=== PATIENT | male | born 1985 | race African-American/Black ===

== ENCOUNTER 2023-08-14 13:29 | Emergency (ER) | payer BC, MEDICAID, SELFPAY ==
[2023-08-14] VITALS (10 sets, daily range): BP systolic 139–150; BP diastolic 77–98; PULSE 86–104; RESP 15–21; TEMP 36.5–36.7; O2SAT 98–100
--- NOTE | ~2023-08-14 | XR_ITS ---
XR chest 1V portable DATE: 08/14/2023 14:25 INDICATION: Cough, congestion and chills for one day TECHNIQUE: Portable upright AP chest on 08/14/2023 1420 hours COMPARISON: None FINDINGS: Normal heart size. No hilar or mediastinal enlargement. No pulmonary infiltrate or consolid ation, pleural effusion or pulmonary vascular congestion or pneumothorax is detected. IMPRESSION: Negative Reviewed, dictated and finalized at location A. STACKER IMPRESSION: Negative
--- NOTE | 2023-08-14 13:35 | ED.URI ---
HPI - URI/Sore Throat General Chief Complaint: Upper Respiratory Infection Stated Complaint: Cold, fever Time Seen by Provider: 08/14/23 13:35 Source: patient and family (mother) Mode of arrival: ambulatory Limitations: no limitations History of Present Illness HPI Narrative: patient is a pleasant 37 year male who presents to the ED today for evaluation of URI symptoms starting a few days ago. he has had a sore throat, congestion, cough. also has pain to the left upper rib. states it hurts to take a deep breath in his chest. denies SOB. denies fever, chills, nausea, vomiting. denies any known exposure to illness. denies dizziness. MD elicited complaint: fever Related Data Allergies Allergy/AdvReac Type Severity Reaction Status Date / Time shellfish derived Allergy Anaphylaxis Verified 08/14/23 13:52 Review of Systems Review of Systems: CONSTITUTIONAL: Denies fever, chills, or sweats. EYES: Denies visual changes, redness, or discharge. ENT: +rhinorrhea, congestion, sore throat. CARDIOVASCULAR: Denies chest pain, palpitations, or edema. RESPIRATORY: cough, pain with deep breathing. GASTROINTESTINAL: Denies abdominal pain, nausea, vomiting, or diarrhea. GENITOURINARY: Denies dysuria or hematuria. SKIN: Denies rash or itching. MUSCULOSKELETAL: left rib pain. Denies back pain, joint pain, or myalgia. NEUROLOGIC: tingling to left little and ring finger intermittently. denies weakness/headache PSYCHIATRIC: Denies anxiety or depression. All systems reviewed & are unremarkable except as noted in HPI and below Exam Narrative: GENERAL: Well-appearing, obese, well-nourished, and in no acute distress. HEAD: Normocephalic, atraumatic. EYES: PERRLA and EOMI. ENT:congestion noted. normal TM bilaterally. posterior oropharyngeal erythema/swelling. no tonsillar exudate or swelling. no peritonsillar abscess. swallowing with ease. NECK: Supple. CHEST: Clear to auscultation. No respiratory distress. TTP to left lateral/anterior/upper rib. no crepitus/deformity noted. HEART: Regular rate and rhythm. No murmur heard. Normal peripheral pulses. ABDOMEN: Soft, nontender, nondistended, normal active bowel sounds. EXTREMITIES: Normal range of motion. No edema.full ROM to LUE with no pain. SKIN: Warm, dry, no rash. NEURO: No focal deficits. Alert and oriented x3. CN II-XII grossly intact. distal NV intact to bilateral upper and lower extremities. strength and sensation equal. PSYCH: Normal mood and affect. Course Vital Signs Vital signs: Vital Signs Temperature 97.7 F 08/14/23 13:34 Pulse Rate 104 H 08/14/23 13:34 Respiratory Rate 18 08/14/23 13:34 Blood Pressure 148/77 H 08/14/23 13:34 Pulse Oximetry 100 08/14/23 13:34 Oxygen Delivery Room Air 08/14/23 13:34 Temperature 98.0 F 08/14/23 16:20 Pulse Rate 93 08/14/23 16:20 Respiratory Rate 16 08/14/23 16:20 Blood Pressure 143/93 H 08/14/23 16:20 Pulse Oximetry 98 08/14/23 16:20 Oxygen Delivery Room Air 08/14/23 13:49 MDM - URI/Sore Throat MDM Narrative Medical decision making narrative: Patient presents for viral URI symptoms.? Rapid strep negative.?covid/flu negative. Discussed supportive care measures for symptoms.? Discussed discharge medications. negative CXR. ? Patient is nontoxic in appearance.? Patient in no acute distress.?BP elevated. Patient is asymptomatic specifically no chest pain, shortness of breath, headache or vision changes.? All other vital signs are within normal limits. No indication for emergent workup at this time. Discussed risk of untreated blood pressure which includes heart attack, stroke, organ damage, permanent disability and possibly .? Advised need for very close follow-up with PCP for close reevaluation.? Patient expresses verbal understanding of this. Vitals within normal limits.? Discussed return precautions with the patient including all the red flag signs or symptoms of when to return the patient. The pat
[2023-08-14 14:10] LABS: Strep Group A RT-PCR NOT DETECTED (Negative)
[2023-08-14 14:21] LABS: Influenza A QL RT-PCR Negative (Negative); Influenza B QL RT-PCR Negative (Negative); SARS-CoV-2 RNA PCR Negative (Negative)
[2023-08-14] MEDS: LIDOCAINE HCL 2% VISC SOLN 15 ML UDC PO (14:54)
[2023-08-14] MEDS: KETOROLAC 30 MG/ML VIAL (*BKC) IM (14:55)
[2023-08-14] MEDS: LIDOCAINE 5% PATCH 1 PATCH TRANSDERM (14:56)
== END 2023-08-14 16:21 | disposition home or self-care (01) ==
PROVIDERS: Emergency Medicine; Emergency Provider Nurse Practitioner; PCP Family Medicine
DX: J06.9 Acute upper respiratory infection, unspecified (principal); J02.9 Acute pharyngitis, unspecified; R07.81 Pleurodynia; R03.0 Elevated blood-pressure reading, without diagnosis of hypertension; Z20.822 Contact with and (suspected) exposure to COVID-19
CPT/HCPCS: 71045; 87636; 87651; 96372; 99283; A9270; J1885

== ENCOUNTER 2023-09-18 17:16 | Inpatient (IN) | payer BC, MEDICAID, SELFPAY ==
--- NOTE | ~2023-09-18 | XR_ITS ---
EXAMINATION: XR chest 1V portable DATE: 09/19/2023 01:31 INDICATION: Cough and shortness of breath. TECHNIQUE: A single frontal view of the chest was obtained. COMPARISON: Chest single view 08/14/2023, chest CT 09/19/2023 FINDINGS: There are patchy airspace opacities in all lung zones bilaterally, worst in left perihilar region. No pleural effusion or pneumothorax. The heart size is normal. IMPRESSION: 1. Diffuse lung disease, consistent with pneumonia versus pulmonary edema. Reviewed, dictated and finalized at location A. ED BOX SEWER
--- NOTE | ~2023-09-18 | CT_ITS ---
EXAMINATION: CTA chest PE protocol DATE: 09/19/2023 01:22 INDICATION: Chest pain. Shortness of breath. TECHNIQUE: Computed tomography angiography (CTA) of the chest was performed with 100 mL Omnipaque-350 intravenous contrast timed to evaluate the pulmonary arteries. Coronal maximum intensity projection 3D-reconstructions were created by the technologist. Automated exposure control and iterative reconst ruction technique were employed. The dose-length product was 1080.41 mGy-cm. COMPARISON: None. FINDINGS: There are patchy airspace and groundglass opacities in all lobes. There is peripheral septa l thickening in right lower lobe. There are small pleural effusions. The heart size is normal. No per icardial effusion. There is no pulmonary embolus. There is diffuse hepatic steatosis. There is a 3.9 cm peripherally calcified mass in the spleen, likely an old hematoma or old infection. Gynecomastia i s noted. There is moderate thoracic spondylosis. There is mild chronic anterior wedging of multiple v ertebral bodies. IMPRESSION: 1. No pulmonary embolus. 2. Diffuse lung disease, consistent with pneumonia versus pulmonary edema. 3. Small pleural effusions. Reviewed, dictated and finalized at location A. STONECUTTER
--- NOTE | ~2023-09-18 | XR_ITS ---
EXAMINATION: XR chest 1V portable Exam Date/Time: 09/20/2023 15:55 CLOUD SECURITY ARCHITECT HISTORY: sob AND PERSISTANT COUGH PT DENIES FEVER Comparison: 09/19/2023. RESULT: Lines, tubes, and devices: None. Lungs and pleura: Patchy diffuse airspace disease, slightly increasing in the bilateral lower lungs. Cardiomediastinal silhouette: Stable. Other: No acute osseous or upper abdominal finding. IMPRESSION: Diffuse pneumonia versus edema, slightly worsening in the bilateral lower lungs. Reviewed, dictated and finalized at location K. D SECURITY ARCHITECT IMPRESSION: Diffuse pneumonia versus edema, slightly worsening in the bilateral lower lungs .
[2023-09-18 17:48] VITALS: BP 147/88; PULSE 120; RESP 20; TEMP 36.3; O2SAT 100
[2023-09-18 20:49] VITALS: BP 132/82; PULSE 109; TEMP 36.8; O2SAT 100
[2023-09-18 22:46] VITALS: PULSE 106; RESP 19; O2SAT 97
[2023-09-18 22:56] VITALS: BP 131/93; PULSE 107; RESP 17; O2SAT 98
[2023-09-18 22:58] VITALS: PULSE 104
--- NOTE | 2023-09-18 23:12 | ECG_ITS ---
Measurements Intervals [place] Rate: 106 P: 64 WA: 140 QRS: 24 QRSD: 101 T: 54 QT: 339 QTc: 452 Interpretive Statements SINUS TACHYCARDIA POSSIBLE LEFT ATRIAL ENLARGEMENT [-0.1mV P WAVE IN V1/V2] NONSPECIFIC T-WAVE ABNORMALITY ABNORMAL RHYTHM ECG NO PREVIOUS ECG AVAILABLE FOR COMPARISON Electronically Signed On 09-19-2023 16:32:46 AUTOMATIC MOLD SANDER by Sha Das M.D.
[2023-09-18 23:41] LABS: Basophils Absolute Auto 0.1 K/mm3 (0.0-0.1); Basophils Percent Auto 0.4 % (0.2-1.2); Eosinophils Absolute Auto 0.1 K/mm3 (0-0.3); Eosinophils Percent Auto 0.5 % (0-4.4); Hematocrit 44.8 % (42.0-52.0); Hemoglobin 14.6 g/dL (14.0-18.0); Immature Granulocyte Absolute 0.05 K/mm3 (0.00-0.031); Immature Granulocyte Percent A 0.3 % (0-0.5); Lymphocytes Absolute Auto 2.84 K/mm3 (0.9-3.2); Lymphocytes Percent Auto 19.8 % (18.3-44.2); Mean Corpuscular HGB Conc 32.6 g/dl (32-36); Mean Corpuscular Hemoglobin 28.2 pg (26-34); Mean Corpuscular Volume 86.5 fl (80-100); Monocytes Absolute Auto 1.3 K/mm3 (0.1-0.6); Monocytes Percent Auto 9.1 % (2.6-8.5); Neutrophils Percent Auto 69.9 % (45.5-73.1); Platelet Count Result 247 k/mm3 (150-375); Red Blood Count 5.18 M/mm3 (4.6-6.20); Red Cell Distribution Width 13.1 % (11.5-14.5); White Blood Count 14.3 K/mm3 (4.5-10.0)
[2023-09-18 23:43] VITALS: BP 152/91; PULSE 106; O2SAT 95
[2023-09-18 23:47] LABS: Appearance Urine Clear (Clear); Bilirubin Urine Negative (Negative); Blood Urine Negative (Negative); Color Urine Yellow (Yellow); Glucose Urine UA 1+ mg/dL (Negative); Ketones Urine Negative (Negative); Leukocyte Esterase Ur Negative LEU/UL (Negative); Nitrate Urine Negative (Negative); Protein Urine Negative (Negative); Specific Grav Ur 1.016 (1.001-1.035); pH Urine 5.5 (5.0-9.0)
[2023-09-18 23:51] LABS: Add Urine Microscopic? NO
[2023-09-18 23:52] LABS: Prothrombin Time 13.4 Seconds (11.1-14.7)
[2023-09-18 23:56] LABS: Alanine Aminotransferase 21 U/L (6-50); Albumin Level 3.7 g/dL (3.5-5.1); Alkaline Phosphatase 83 U/L (38-126); Anion Gap 6 mmol/L (8-16); Aspartate Amino Transferase 19 U/L (17-59); Bilirubin,Total 1.1 mg/dL (0.2-1.3); Blood Urea Nitrogen 5 mg/dL (9-20); Calcium 8.5 mg/dL (8.4-10.2); Carbon Dioxide 26 mmol/L (22-30); Chloride 104 mmol/L (98-107); Estimated CRCL calculation 168 ml/min; Estimated Glomerular Filt Rate > 60; Glucose 243 mg/dL (65-110); Lactic Acid Reflex 1.4 mmol/L (0.7-2.0); Magnesium 1.8 mg/dL (1.6-2.3); Potassium 3.9 mmol/L (3.4-5.0); Sodium 136 mmol/L (137-145)
[2023-09-19] VITALS (15 sets, daily range): BP systolic 124–162; BP diastolic 77–101; PULSE 95–110; RESP 16–21; TEMP 36.5–37.4; O2SAT 92–97; BMI 37.6
[2023-09-19] LABS: D Dimer 0.57 ug/mL (<0.48)
[2023-09-19 00:07] LABS: NT Pro B Type Natriuretic Pept 774 pg/mL (19.9-100); Troponin I < 0.012 ng/mL (0.000-0.034)
[2023-09-19 00:13] LABS: Procalcitonin 0.1 ng/mL
[2023-09-19 00:25] LABS: Influenza A QL RT-PCR Negative (Negative); Influenza B QL RT-PCR Negative (Negative); RSV RNA, RT-PCR Negative (Negative); SARS-CoV-2 RNA PCR Negative (Negative)
--- NOTE | 2023-09-19 04:58 | ED.GENADULT ---
HPI - General Adult General Chief complaint: Shortness of Breath/Dyspnea Stated complaint: SOB Time Seen by Provider: 09/18/23 22:49 History of Present Illness HPI narrative: Patient 38-year-old gentleman who presents emergency department with chief complaint of cough and shortness of breath. The patient reports that he has had a productive cough for some time reports been getting worse reports also been having shortness of breath worse whenever he lays flat. The patient reports that he has family history for hypertrophic cardiomyopathy and has not been evaluated before for it. The patient does report that he has had chills and body aches Related Data Allergies Allergy/AdvReac Type Severity Reaction Status Date / Time shellfish derived Allergy Anaphylaxis Verified 09/18/23 22:58 Review of Systems Review of Systems: A 10 system review of systems was completed on the patient and is negative except for what is stated in the HPI. Nursing and ancillary documentation was reviewed. Exam Narrative: GENERAL: Well-appearing, well-nourished, and in no acute distress. HEAD: Normocephalic, atraumatic. EYES: PERRLA and EOMI. ENT: Nares clear, no rhinorrhea or epistaxis. Mucous membranes moist. NECK: Supple. CHEST: Clear to auscultation. No respiratory distress. HEART: Regular rate and rhythm. No murmur heard. Normal peripheral pulses. ABDOMEN: Soft, nontender, nondistended, normal active bowel sounds. EXTREMITIES: Normal range of motion. No edema. SKIN: Warm, dry, no rash. NEURO: No focal deficits. Alert and oriented x3. PSYCH: Normal mood and affect. Course Vital Signs Vital signs: Vital Signs Temperature 36.3 C L 09/18/23 17:48 Pulse Rate 120 H 09/18/23 17:48 Respiratory Rate 20 09/18/23 17:48 Blood Pressure 147/88 H 09/18/23 17:48 Pulse Oximetry 100 09/18/23 17:48 Oxygen Delivery Room Air 09/18/23 17:48 Temperature 36.8 C 09/18/23 20:49 Pulse Rate 108 H 09/19/23 04:00 Respiratory Rate 20 09/19/23 04:00 Blood Pressure 162/100 H 09/19/23 04:00 Pulse Oximetry 95 09/19/23 04:00 Oxygen Delivery Room Air 09/18/23 22:56 Medical Decision Making MDM Narrative Medical decision making narrative: Differential diagnosis includes pneumonia, COVID, congestive heart failure, pulmonary embolism Patient had a normal troponin but elevated D-dimer and elevated BNP. Chest x-ray did show some patchy infiltrates COVID and flu RSV were negative. [place] [id number] CTA of the chest showed per radiology report pulmonary edema and trace bilateral pleural effusions. The patient has had symptoms consistent with pneumonia and the CT does show infiltrates the patient was empirically started with Rocephin and Zithromax and also was given 20 mg of IV Lasix. Given the patient's history of hypertrophic cardiomyopathy and family the patient will undergo a cardiac echo while in the hospital. Vital Signs Vital Signs: Vital Signs Temperature 36.3 C L 09/18/23 17:48 Pulse Rate 120 H 09/18/23 17:48 Respiratory Rate 20 09/18/23 17:48 Blood Pressure 147/88 H 09/18/23 17:48 Pulse Oximetry 100 09/18/23 17:48 Oxygen Delivery Room Air 09/18/23 17:48 Temperature 36.8 C 09/18/23 20:49 Pulse Rate 108 H 09/19/23 04:00 Respiratory Rate 20 09/19/23 04:00 Blood Pressure 162/100 H 09/19/23 04:00 Pulse Oximetry 95 09/19/23 04:00 Oxygen Delivery Room Air 09/18/23 22:56 Lab Data 09/18/23 23:30 09/18/23 23:30 Labs: Lab Results 09/18/23 Range/Units 23:30 WBC 14.3 H (4.5-10.0) K/mm3 RBC 5.18 (4.6-6.20) M/mm3 Hgb 14.6 (14.0-18.0) g/dL Hct 44.8 (42.0-52.0) % MCV 86.5 (80-100) fl MCH 28.2 (26-34) pg MCHC 32.6 (32-36) g/dl RDW 13.1 (11.5-14.5) % Plt Count 247 (150-375) k/mm3 MPV 12.0 H (7.4-10.4) fl Immature Gran % (Auto) 0.3 (0-0.5) % Neut % (Auto) 69.9 (45.5-73.1) % Lymph % (Auto)
[2023-09-19] MEDS: BENZONATATE 100 MG CAPSULE 200 MG PO (05:33)
[2023-09-19] MEDS: FUROSEMIDE INJ 40 MG/4 ML VIAL 20 MG IV PUSH (05:33)
[2023-09-19] MEDS: AZITHROMYCIN 500 MG/NS 250 ML 500 MG/250 ML BAG 250 MG IVPB (06:00)
--- NOTE | 2023-09-19 06:15 | PM.IMHP ---
H&P: HPI History of Present Illness Date/Time: 09/19/23 06:15 Chief Complaint: shortness of breath, cough, sputum production Narrative: A pleasant 38M w/ obesity who presents with orthopnea, dyspnea on exertion, cough productive of yellow green and brown sputum since . He does not know of any sick contacts and hasn't travelled. He denies swelling. His father had HCM but he hasn't been tested for it yet. He denies syncope. Associated symptoms include nausea and soreness at the ribs. He denies smoking, ETOH or illicit drug use. Review of Systems Review of Systems: All systems reviewed & are unremarkable except as noted in HPI and below (HPI) Meds Home Medications and Allergies Home Medications Medication Instructions Recorded Confirmed Type benzonatate 200 mg capsule 200 mg PO TID PRN cough #30 caps 08/14/23 Rx diclofenac sodium 50 mg 50 mg PO TID PRN pain #30 tabs 08/14/23 Rx tablet,delayed release lidocaine HCl 2 % mucosal solution 1 applic PO QID PRN pain #100 mL 08/14/23 Rx (Lidocaine Viscous) Allergies Allergy/AdvReac Type Severity Reaction Status Date / Time shellfish derived Allergy Anaphylaxis Verified 09/18/23 22:58 Vital Signs Vital Signs - 24 hr 09/18/23 17:48 09/18/23 20:49 09/18/23 22:46 Temperature 97.3 F L 98.3 F Pulse Rate 120 H 109 H 106 H Respiratory Rate 20 19 Blood Pressure 147/88 H 132/82 Pulse Oximetry 100 100 97 Oxygen Delivery Room Air Room Air 09/18/23 22:56 09/18/23 22:56 09/18/23 22:58 Temperature Pulse Rate 107 H 104 H Respiratory Rate 17 Blood Pressure 131/93 H Pulse Oximetry 98 98 Oxygen Delivery Room Air 09/18/23 23:43 09/19/23 02:10 09/19/23 04:00 Temperature Pulse Rate 106 H 107 H 108 H Respiratory Rate 19 20 Blood Pressure 152/91 H 152/101 H 162/100 H Pulse Oximetry 95 96 95 Oxygen Delivery Exam Const: General: comfortable and no acute distress Eyes: Pupils: Equal, round and reactive pupils present Neck: Neck: supple Resp: Effort & Inspection: normal respiratory effort Auscultation: clear to auscultation bilaterally, no crackles, no rales and no rhonchi Cardio: Rate: regular rate Rhythm: regular rhythm Heart sounds: no gallops, no murmurs and no rubs GI: GI Palp: Yes Soft to palpation and No Tenderness to palpation present (GI) Neuro: Motor exam (neuro): 5/5 motor strength present throughout Extrem: General: no edema H&P: Results Labs Labs: Short CBC 09/18/23 Range/Units 23:30 WBC 14.3 H (4.5-10.0) K/mm3 Hgb 14.6 (14.0-18.0) g/dL Hct 44.8 (42.0-52.0) % Plt Count 247 (150-375) k/mm3 BMP 09/18/23 23:30 Sodium 136 L Potassium 3.9 Chloride 104 Carbon Dioxide 26 BUN 5 L Creatinine 0.70 Glucose 243 H Calcium 8.5 Cardiac Enzymes 09/18/23 Range/Units 23:30 Troponin I < 0.012 (0.000-0.034) ng/mL Liver Function 09/18/23 Range/Units 23:30 Total Bilirubin 1.1 (0.2-1.3) mg/dL AST 19 (17-59) U/L ALT 21 (6-50) U/L Alkaline Phosphatase 83 (38-126) U/L Albumin 3.7 (3.5-5.1) g/dL Urine 09/18/23 Range/Units 23:30 Urine Color Yellow (Yellow) Urine Appearance Clear (Clear) Urine pH 5.5 (5.0-9.0) Ur Specific [place] 1.016 (1.001-1.035) Urine Protein Negative (Negative) mg/dL Urine Glucose (UA) 1+ H (Negative) mg/dL Assessment and Plan Assessment and plan (1) Community acquired pneumonia: Code(s): J18.9 - Pneumonia, unspecified organism Status: Acute Plan A pleasant 38M w/ obesity who presents with orthopnea, dyspnea on exertion, cough productive of yellow green and brown sputum since thanks. He does not know of any sick contacts and hasn't travelled. He denies swelling. His father had HCM but he hasn't been tested for it yet. He denies syncope. Associated symptoms include nausea and soreness at the ribs. He denies smoking, ETOH or illicit drug use. Admitted on 09/19
--- NOTE | 2023-09-19 07:50 | ADMGEN ---
This patient, Chandler Tidwell, was admitted to Medical Room 344-01. Patient/family oriented to hospital policies and general routines including ID bracelet, bed and alarms, visiting hours, pain management, procedures, bathroom and other care routines, personal items, smoking policy, room service/diet, and visiting hours. Information on how to activate the Rapid Response Team has been discussed. Patient/Family are encouraged to report perceived risks to care and to ask questions if they do not understand what they are told or what they should do.
[2023-09-19] MEDS: IPRATROPIUM BR 0.02% INH SOLN 0.5 MG/2.5 ML VIAL INHALATION ×3 (08:44→20:58)
[2023-09-19] MEDS: ALBUTEROL SULFATE NEB 2.5 MG/3 ML INH INHALATION ×3 (08:44→20:58)
[2023-09-19] MEDS: ENOXAPARIN 40 MG/0.4 ML SYRINGE SUB-Q (11:42)
--- NOTE | 2023-09-19 15:04 | PM.IMPN ---
Progress Note: A&P Assessment and Plan (1) Community acquired pneumonia: Code(s): J18.9 - Pneumonia, unspecified organism Status: Acute Assessment and Plan: Initiated on Rocephin and azithromycin 09/19 Sputum culture pending Recheck chest x-ray 09/20 Patient will need liquid antibiotics at discharge due to inability to swallow pills (2) Shortness of breath: Code(s): R06.02 - Shortness of breath Status: Acute Assessment and Plan: CTA chest official read pending, prelim read w/o acute PE. it also demonstrates hazy infiltrates b/l and some pulm edema. although his orthopnea and HERNANDEZ are most likely related to CAP, his father had HCM, his BNP elevated to 774. trop normal and EKG w/o acute ischemic change, TTE pending. He appears euvolemic and was given lasix 20mg x1 in the ED. will hold further dosing for now Plan GI prophylaxis: not indicated DVT prophylaxis: lovenox Code Status: Full Code Dispo: stable. Subjective Date/time seen: 09/19/23 15:04 Interval history: 38M w/ obesity who presents with orthopnea, dyspnea on exertion, cough productive of yellow green and brown sputum since and currently being treated for pneumonia. No overnight events noted. No nausea, vomiting or diarrhea. No fevers or chills. Patient is complaining of chest pain and shortness of breath, about the same as yesterday but better than 5 days ago when symptoms initiated. Family is in the room and states they have a family history of HOCM and they would like patient tested for this while he was here. Review of Systems Review of Systems: 12 point review of systems was assessed and was negative except as noted in the HPI Exam Narrative: General: No acute distress, alert and oriented per baseline HEENT: Atraumatic, normocephalic, mucous membranes moist CV: Regular rate and rhythm, S1, S2 Lungs: Quite diminished throughout, unable to hear crackles or wheezes, poor air entry Abdomen: Soft, nontender, nondistended Extremities: Normal to inspection Skin: No rashes noted, no lesions or wounds seen Psych: Euthymic, normal affect Objective Data Vital Signs Vital Signs: Vital Signs - 24 hr 09/18/23 17:48 09/18/23 20:49 09/18/23 22:46 Temperature 97.3 F L 98.3 F Pulse Rate 120 H 109 H 106 H Respiratory Rate 20 19 Blood Pressure 147/88 H 132/82 Pulse Oximetry 100 100 97 Oxygen Delivery Room Air Room Air 09/18/23 22:56 09/18/23 22:56 09/18/23 22:58 Temperature Pulse Rate 107 H 104 H Respiratory Rate 17 Blood Pressure 131/93 H Pulse Oximetry 98 98 Oxygen Delivery Room Air 09/18/23 23:43 09/19/23 02:10 09/19/23 04:00 Temperature Pulse Rate 106 H 107 H 108 H Respiratory Rate 19 20 Blood Pressure 152/91 H 152/101 H 162/100 H Pulse Oximetry 95 96 95 Oxygen Delivery 09/19/23 07:19 09/19/23 08:47 09/19/23 08:47 Temperature Pulse Rate 102 H 102 H Respiratory Rate 21 H 20 Blood Pressure 162/100 H Pulse Oximetry 96 92 Oxygen Delivery Room Air 09/19/23 08:54 09/19/23 10:00 09/19/23 11:30 Temperature 99.3 F Pulse Rate 96 103 H 108 H Respiratory Rate 20 20 Blood Pressure 133/92 H 124/78 Pulse Oximetry 96 97 Oxygen Delivery 09/19/23 12:00 09/19/23 14:25 09/19/23 14:39 Temperature Pulse Rate 110 H 100 104 H Respiratory Rate 20 20 Blood Pressure Pulse Oximetry Oxygen Delivery Intake/Output Intake/Output: Intake & Output 09/16/23 09/17/23 09/18/23 09/19/23 23:59 23:59 23:59 23:59 Intake Total 700 Balance 700 Meds/Results Medications: Active Medications Generic Name Dose Route Start Last Admin Trade Name Freq PRN Reason Stop Dose Admin Acetaminophen 650 mg 09/19/23 04:55 Acetaminophen 325 Mg Tablet PO Q4H PRN Mild Pain (1-3) or Fever Albuterol 2.5 mg 09/19/23 08:00 09/19/23 14:25 Albuterol Sulfate Neb 2.5 Mg/3 Ml Inh INHALATION 2.5 mg Q6
[2023-09-19] MEDS: LIDOCAINE 5% PATCH 1 PATCH TRANSDERM (16:26)
[2023-09-19] MEDS: KETOROLAC 15 MG/ML VIAL (*BKC) IV PUSH (16:27)
--- NOTE | 2023-09-19 20:32 | PC.NURSE ---
BOLIVAR DREW NOTIFIED OF PATIENT REQUEST FOR BREATHING TREATMENT.
[2023-09-19] MEDS: diphenhydrAMINE HCl CAP 25 MG CAPSULE PO (22:06)
[2023-09-19] MEDS: guaiFENesin/DEXTROMETHORPHAN 10 ML UDC 5 ML PO (22:06)
[2023-09-20] VITALS (18 sets, daily range): BP systolic 117–131; BP diastolic 69–79; PULSE 87–117; RESP 16–20; TEMP 36.6; O2SAT 94–97
[2023-09-20] MEDS: guaiFENesin/DEXTROMETHORPHAN 10 ML UDC 5 ML PO (02:09)
[2023-09-20] MEDS: KETOROLAC 15 MG/ML VIAL (*BKC) IV PUSH ×2 (02:11→22:09)
[2023-09-20] MEDS: IPRATROPIUM BR 0.02% INH SOLN 0.5 MG/2.5 ML VIAL INHALATION ×4 (03:30→20:09)
[2023-09-20] MEDS: ALBUTEROL SULFATE NEB 2.5 MG/3 ML INH INHALATION ×4 (03:30→20:09)
[2023-09-20 06:00] LABS: Basophils Absolute Auto 0.1 K/mm3 (0.0-0.1); Basophils Percent Auto 0.5 % (0.2-1.2); Eosinophils Absolute Auto 0.1 K/mm3 (0-0.3); Eosinophils Percent Auto 1.1 % (0-4.4); Hematocrit 42.8 % (42.0-52.0); Hemoglobin 13.6 g/dL (14.0-18.0); Immature Granulocyte Absolute 0.07 K/mm3 (0.00-0.031); Immature Granulocyte Percent A 0.5 % (0-0.5); Lymphocytes Absolute Auto 2.83 K/mm3 (0.9-3.2); Lymphocytes Percent Auto 21.8 % (18.3-44.2); Mean Corpuscular HGB Conc 31.8 g/dl (32-36); Mean Corpuscular Volume 88.1 fl (80-100); Monocytes Absolute Auto 1.4 K/mm3 (0.1-0.6); Monocytes Percent Auto 10.6 % (2.6-8.5); Neutrophils Absolute Auto 8.5 K/mm3 (1.3-6.7); Neutrophils Percent Auto 65.5 % (45.5-73.1); Platelet Count Result 235 k/mm3 (150-375); Red Blood Count 4.86 M/mm3 (4.6-6.20); Red Cell Distribution Width 12.8 % (11.5-14.5)
--- NOTE | 2023-09-20 06:00 | ECHO_ITS ---
Patient Info Name: Chandler Tidwell Age: 38 years : 1985 Gender: Male Ht: 71 in Wt: 270 lbs BSA: 2.52 m2 HR: 108 bpm BP: 123 / 69 mmHg Heart Rhythm: Sinus Rhythm, Tachycardia Technical Quality: Fair Exam Date: 09/20/2023 10:06 AM Exam Location: Echo Lab Patient Status: Inpatient Admit Date: 09/19/2023 Staff Ordering Physician: Mark Casper MD Banquet Steward: Beverly Ahn RDCS Attending Provider: Alexandrea Aparicio MD Referring Physician: Pennie MONZON; Exam Type: CA echo dop color flow w con Study Info Indications - pulm edema elevated BNP FAMILY HX/O HOCM Complete two-dimensional, color flow and Doppler transthoracic echocardiogram is performed with contrast to opacify the left ventricle and to improve the deliniation of the left ventricle endocardial borders. Contrast/Agitated Saline Contrast/Ag. Saline: Definity Amount: 2.00 ml Administered By: Beverly Ahn [facility] Existing IV Access: Yes IV Access Condition: patent with no signs of infiltration Summary 1. Left ventricular chamber dimension is mildly enlarged. 2. Left ventricular systolic function is severely reduced, estimated at 20-25%. 3. The left ventricular diastolic function is grade I diastolic dysfunction. 4. Right ventricular systolic function is normal. 5. There is mild to moderate mitral valve regurgitation. Left Ventricle Left ventricular chamber dimension is mildly enlarged. Left ventricular systolic function is severely reduced, estimated at 20-25%. There is no increased left ventricular wall thickness. The left ventricular diastolic function is grade I diastolic dysfunction. Right Ventricle Right ventricular chamber dimension is normal. Right ventricular systolic function is normal. Left Atria Left atrial chamber dimension is normal. Right Atria Right atrial chamber dimension is normal. Atrial Septum Intact interatrial septum visualized by color flow imaging. Aortic Valve The aortic valve is not well visualized. There is no aortic valve stenosis. There is no aortic valve regurgitation. Pulmonic Valve The pulmonic valve is not well visualized. Mitral Valve There is mild to moderate mitral valve regurgitation. Tricuspid Valve There is trace tricuspid valve regurgitation. Pericardium/Pleural There is no pericardial effusion. Inferior Vena Cava Inferior vena cava is not well visualized. Aorta The aortic root size at the sinus of Valsalva is normal. Left Ventricular Outflow Tract Name Value Normal LVOT 2D LVOT Diameter 2.15 cm LVOT Doppler LVOT Peak Gradient 3 mmHg LVOT Mean Gradient 2 mmHg LVOT VTI 16.44 cm LVOT VTI/AV VTI Ratio 0.79 LVOT Stroke Volume 59.62 ml LVOT CO 16.49 l/min LVOT CI 6.53 L/min/m2 Pulmonic Valve Name Value Normal JUSTINE D
[2023-09-20 06:12] LABS: Alanine Aminotransferase 18 U/L (6-50); Albumin Level 3.5 g/dL (3.5-5.1); Alkaline Phosphatase 82 U/L (38-126); Anion Gap 11 mmol/L (8-16); Aspartate Amino Transferase 19 U/L (17-59); Bilirubin,Total 1.3 mg/dL (0.2-1.3); Blood Urea Nitrogen 7 mg/dL (9-20); Calcium 8.4 mg/dL (8.4-10.2); Carbon Dioxide 22 mmol/L (22-30); Chloride 101 mmol/L (98-107); Estimated CRCL calculation 166 ml/min; Estimated Glomerular Filt Rate > 60; Glucose 364 mg/dL (65-110); Potassium 3.7 mmol/L (3.4-5.0); Sodium 134 mmol/L (137-145)
[2023-09-20] MEDS: AZITHROMYCIN 500 MG/NS 250 ML 500 MG/250 ML BAG 250 MG IVPB (07:04)
[2023-09-20] MEDS: ENOXAPARIN 40 MG/0.4 ML SYRINGE SUB-Q (08:16)
[2023-09-20] MEDS: PERFLUTREN LIPID MICROSPHERES 1.5 ML VIAL DILUTED TO 10 ML TOTAL VOLUME IV PUSH (10:40)
--- NOTE | 2023-09-20 11:03 | IVDEFINITY ---
Prior to administration of IV Definity the patient was educated on the risks and benefits of the imaging enhancing agent including potential adverse side effects. The patient verbalized understanding. Allergies were verified. No exclusion criteria were identified and at least one of the following inclusion criteria were met: 1) physician request, 2) patient technically difficult to image (per the [place] [employer] guidelines of two or more segments not discernable within the apical view), or 3) questionable left ventricular function. ?
--- NOTE | 2023-09-20 15:49 | PM.IMPN ---
Progress Note: A&P Assessment and Plan (1) Community acquired pneumonia: Code(s): J18.9 - Pneumonia, unspecified organism Status: Acute Assessment and Plan: Initiated on Rocephin and azithromycin 09/19 Sputum culture pending Recheck chest x-ray 09/20 pending Patient will need liquid antibiotics at discharge due to inability to swallow pills (2) Shortness of breath: Code(s): R06.02 - Shortness of breath Status: Acute Assessment and Plan: CTA chest official read pending, prelim read w/o acute PE. it also demonstrates hazy infiltrates b/l and some pulm edema. although his orthopnea and HERNANDEZ are most likely related to CAP, his father had HCM, his BNP elevated to 774. trop normal and EKG w/o acute ischemic change, TTE pending. He appears euvolemic and was given lasix 20mg x1 in the ED. will hold further dosing for now Improving, echo pending Plan GI prophylaxis: not indicated DVT prophylaxis: lovenox Code Status: Full Code Dispo: stable. Subjective Date/time seen: 09/20/23 15:49 Interval history: 38M w/ obesity who presents with orthopnea, dyspnea on exertion, cough productive of yellow green and brown sputum since and currently being treated for pneumonia. No overnight events noted. No nausea, vomiting or diarrhea. No fevers or chills. Patient is complaining of chest pain and shortness of breath, about the same as yesterday but better than 5 days ago when symptoms initiated. Family is in the room and states they have a family history of HOCM and they would like patient tested for this while he was here. 09/20: feels better than yesterday, no events, no fevers, no chills. Still with cough, SOB, chest discomfort with deep inspiration, but improving from yesterday. Review of Systems Review of Systems: 12 point review of systems was assessed and was negative except as noted in the HPI Exam Narrative: General: No acute distress, alert and oriented per baseline HEENT: Atraumatic, normocephalic, mucous membranes moist CV: Regular rate and rhythm, S1, S2 Lungs: Improved air entry from yesterday, coarse BS throughout, no wheeze Abdomen: Soft, nontender, nondistended Extremities: Normal to inspection Skin: No rashes noted, no lesions or wounds seen Psych: Euthymic, normal affect Objective Data Vital Signs Vital Signs: Vital Signs - 24 hr 09/19/23 20:58 09/19/23 20:00 09/19/23 20:00 Temperature Pulse Rate 95 105 H Respiratory Rate 20 Blood Pressure Pulse Oximetry Oxygen Delivery Room Air 09/19/23 21:52 09/20/23 00:00 09/20/23 03:30 Temperature 97.7 F Pulse Rate 100 111 H 103 H Respiratory Rate 18 20 Blood Pressure 128/77 Pulse Oximetry 97 Oxygen Delivery 09/19/23 21:06 09/20/23 03:42 09/20/23 04:00 Temperature Pulse Rate 100 105 H 105 H Respiratory Rate 20 20 Blood Pressure Pulse Oximetry Oxygen Delivery 09/20/23 05:51 09/20/23 07:00 09/20/23 07:00 Temperature 97.8 F Pulse Rate 103 H 94 94 Respiratory Rate 18 18 18 Blood Pressure 123/69 Pulse Oximetry 97 95 Oxygen Delivery Room Air 09/20/23 07:10 09/20/23 08:00 09/20/23 12:00 Temperature Pulse Rate 92 110 H 106 H Respiratory Rate 18 Blood Pressure Pulse Oximetry Oxygen Delivery 09/20/23 13:00 09/20/23 13:10 09/20/23 14:00 Temperature 97.9 F Pulse Rate 103 H 99 106 H Respiratory Rate 20 20 16 Blood Pressure 117/77 Pulse Oximetry 95 Oxygen Delivery Intake/Output Intake/Output: Intake & Output 09/17/23 09/18/23 09/19/23 09/20/23 23:59 23:59 23:59 23:59 Intake Total 1400 1330 Balance 1400 1330 Meds/Results Medications: Active Medications Generic Name Dose Route Start Last Admin Trade Name Freq PRN Reason Stop Dose Admin Acetaminophen 650 mg 09/19/23 04:55 Acetaminophen 325 Mg Tablet PO Q4H PRN Mild Pain (1-3) or Fever Albuterol 2.5 mg
[2023-09-20] MEDS: BENZONATATE 100 MG CAPSULE PO ×2 (16:14→19:34)
[2023-09-21] VITALS (12 sets, daily range): BP systolic 126–152; BP diastolic 69–87; PULSE 95–114; RESP 14–20; TEMP 36.4–37; O2SAT 93–100
[2023-09-21] MEDS: ALBUTEROL SULFATE NEB 2.5 MG/3 ML INH INHALATION (02:30)
[2023-09-21] MEDS: IPRATROPIUM BR 0.02% INH SOLN 0.5 MG/2.5 ML VIAL INHALATION (02:30)
[2023-09-21] MEDS: guaiFENesin/DEXTROMETHORPHAN 10 ML UDC 5 ML PO (03:53)
[2023-09-21 05:56] LABS: Basophils Absolute Auto 0.1 K/mm3 (0.0-0.1); Basophils Percent Auto 0.4 % (0.2-1.2); Eosinophils Absolute Auto 0.2 K/mm3 (0-0.3); Eosinophils Percent Auto 1.1 % (0-4.4); Hematocrit 42.8 % (42.0-52.0); Hemoglobin 13.7 g/dL (14.0-18.0); Immature Granulocyte Absolute 0.07 K/mm3 (0.00-0.031); Immature Granulocyte Percent A 0.5 % (0-0.5); Lymphocytes Absolute Auto 2.65 K/mm3 (0.9-3.2); Lymphocytes Percent Auto 19.5 % (18.3-44.2); Mean Corpuscular Hemoglobin 28.1 pg (26-34); Mean Corpuscular Volume 87.7 fl (80-100); Mean Platelet Volume 11.8 fl (7.4-10.4); Monocytes Absolute Auto 1.6 K/mm3 (0.1-0.6); Monocytes Percent Auto 11.6 % (2.6-8.5); Neutrophils Absolute Auto 9.1 K/mm3 (1.3-6.7); Neutrophils Percent Auto 66.9 % (45.5-73.1); Platelet Count Result 261 k/mm3 (150-375); Red Blood Count 4.88 M/mm3 (4.6-6.20); Red Cell Distribution Width 12.7 % (11.5-14.5); White Blood Count 13.6 K/mm3 (4.5-10.0)
[2023-09-21 06:03] LABS: Alanine Aminotransferase 17 U/L (6-50); Albumin Level 3.5 g/dL (3.5-5.1); Alkaline Phosphatase 82 U/L (38-126); Anion Gap 9 mmol/L (8-16); Aspartate Amino Transferase 20 U/L (17-59); Bilirubin,Total 1.2 mg/dL (0.2-1.3); Blood Urea Nitrogen 7 mg/dL (9-20); Calcium 8.5 mg/dL (8.4-10.2); Carbon Dioxide 23 mmol/L (22-30); Chloride 101 mmol/L (98-107); Estimated CRCL calculation 166 ml/min; Estimated Glomerular Filt Rate > 60; Glucose 350 mg/dL (65-110); Potassium 3.8 mmol/L (3.4-5.0); Sodium 133 mmol/L (137-145)
[2023-09-21] MEDS: AZITHROMYCIN 500 MG/NS 250 ML 500 MG/250 ML BAG 250 MG IVPB (06:11)
[2023-09-21] MEDS: ENOXAPARIN 40 MG/0.4 ML SYRINGE SUB-Q (08:17)
[2023-09-21] MEDS: BENZONATATE 100 MG CAPSULE PO ×3 (08:17→17:36)
--- NOTE | 2023-09-21 11:19 | PM.IMPN ---
Progress Note: A&P Assessment and Plan (1) Community acquired pneumonia: Code(s): J18.9 - Pneumonia, unspecified organism Status: Acute Assessment and Plan: Initiated on Rocephin and azithromycin 09/19 Sputum culture pending Recheck chest x-ray 09/20 essentially unchanged Patient will need liquid antibiotics at discharge due to inability to swallow pills (2) Shortness of breath: Code(s): R06.02 - Shortness of breath Status: Acute Assessment and Plan: CTA chest official read pending, prelim read w/o acute PE. it also demonstrates hazy infiltrates b/l and some pulm edema. although his orthopnea and HERNANDEZ are most likely related to CAP, his father had HCM, his BNP elevated to 774. trop normal and EKG w/o acute ischemic change, TTE pending. He appears euvolemic and was given lasix 20mg x1 in the ED. will hold further dosing for now echo showed severe HF, cardio consult pending (3) Systolic heart failure: Code(s): I50.20 - Unspecified systolic (congestive) heart failure Status: Acute Assessment and Plan: severe new onset heart failure with EF 20-25% lasix 40 mg IV daily started cardio consult pending Plan GI prophylaxis: not indicated DVT prophylaxis: lovenox Code Status: Full Code Dispo: stable. Subjective Date/time seen: 09/21/23 11:19 Interval history: 38M w/ obesity who presents with orthopnea, dyspnea on exertion, cough productive of yellow green and brown sputum since and currently being treated for pneumonia. No overnight events noted. No nausea, vomiting or diarrhea. No fevers or chills. Patient is complaining of chest pain and shortness of breath, about the same as yesterday but better than 5 days ago when symptoms initiated. Family is in the room and states they have a family history of HOCM and they would like patient tested for this while he was here. 09/20: feels better than yesterday, no events, no fevers, no chills. Still with cough, SOB, chest discomfort with deep inspiration, but improving from yesterday. 09/21: feels more sob today, slightly worse than yesterday, no nvd Review of Systems Review of Systems: 12 point review of systems was assessed and was negative except as noted in the HPI Exam Narrative: General: No acute distress, alert and oriented per baseline HEENT: Atraumatic, normocephalic, mucous membranes moist CV: Regular rate and rhythm, S1, S2 Lungs: Improved air entry from yesterday, coarse BS throughout, no wheeze Abdomen: Soft, nontender, nondistended Extremities: Normal to inspection Skin: No rashes noted, no lesions or wounds seen Psych: Euthymic, normal affect Objective Data Vital Signs Vital Signs: Vital Signs - 24 hr 09/20/23 12:00 09/20/23 13:00 09/20/23 13:10 Temperature Pulse Rate 106 H 103 H 99 Respiratory Rate 20 20 Blood Pressure Pulse Oximetry Oxygen Delivery 09/20/23 14:00 09/20/23 16:00 09/20/23 19:38 Temperature 97.9 F Pulse Rate 106 H 106 H Respiratory Rate 16 Blood Pressure 117/77 Pulse Oximetry 95 Oxygen Delivery Room Air 09/20/23 20:09 09/20/23 20:11 09/20/23 20:22 Temperature Pulse Rate 87 92 Respiratory Rate 20 20 Blood Pressure Pulse Oximetry 94 Oxygen Delivery Room Air 09/20/23 20:00 09/20/23 22:00 09/21/23 00:00 Temperature Pulse Rate 117 H 114 H 108 H Respiratory Rate 16 Blood Pressure 131/79 Pulse Oximetry 97 Oxygen Delivery 09/21/23 02:30 09/21/23 02:45 09/21/23 04:00 Temperature Pulse Rate 100 95 114 H Respiratory Rate 20 20 Blood Pressure Pulse Oximetry Oxygen Delivery 09/21/23 05:45 09/21/23 08:00 Temperature 98.6 F Pulse Rate 103 H 105 H Respiratory Rate 14 Blood Pressure 126/83 Pulse Oximetry 93 Oxygen Delivery Intake/Output Intake/Output: Intake & Output 09/18/23 09/19/23 09/20/23 09/21/23 23:59 23:59 23:59 23:59 Int
[2023-09-21] MEDS: FUROSEMIDE INJ 40 MG/4 ML VIAL IV PUSH (11:51)
--- NOTE | 2023-09-21 13:37 | PM.CNCAR ---
Assessment and Plan Assessment and plan (1) Acute heart failure with reduced ejection fraction and diastolic dysfunction: Code(s): I50.41 - Acute combined systolic (congestive) and diastolic (congestive) heart failure Status: Acute Assessment and Plan: This is a new diagnosis of heart failure for the patient. Discussed echocardiogram results with the patient and diagnosis of heart failure. Unclear etiology of heart failure -- could possibly be familial/genetic, viral cardiomyopathy given his recent viral symptoms and pneumonia, ischemic, idiopathic, etc. No evidence of acute coronary syndrome and given his young age, suspect it is most likely non-ischemic etiology. Echocardiogram does not appear to be consistent with HCM. Continue IV Lasix for now. Please monitor strict I/Os. Will start Entresto. Will start Toprol. If he tolerates Entresto and Toprol, will plan to start Spironolactone tomorrow. Will need to start SGLT-2 inhibitor. Recommend outpatient ischemic evaluation. Outpatient cardiac MRI. Needs outpatient sleep study as well. Discussed Life Vest for the patient -- he is not sure about doing Life Vest at this time. Telemetry without any significant arrhythmias. Will need close outpatient follow up. (2) Community acquired pneumonia: Code(s): J18.9 - Pneumonia, unspecified organism Status: Acute Assessment and Plan: Management as per primary team. History of Present Illness History of Present Illness Consult date/time: 09/21/23 13:37 Requesting physician: Jenny Leiva DO Consult reason: congestive heart failure Reason For Visit: community acquired pneumonia edema Narrative: We are consulted for heart failure with reduced ejection fraction. This is a 38 year old male with obesity who presented on 09/19 for orthopnea, dyspnea on exertion, productive cough since Thanksgiving, pleuritic chest pain. He is currently being treated for community acquired pneumonia. Given his symptoms of orthopnea, shortness of breath, along with elevated BNP of 774, an echocardiogram was obtained, which shows mildly enlarged LV, LVEF of 20-25%, grade 1 diastolic dysfunction, mild-moderate mitral regurgitation. Patient denies any prior cardiac history. Reports his father has hypertrophic cardiomyopathy. He has not been tested for that yet. No tobacco use or vaping. No illicit drug use. Review of Systems Review of Systems: All systems reviewed & are unremarkable except as noted in HPI and below (HPI) PENDING SALE TO [facility] Past Medical History Medical History Systolic heart failure Family History Family History Grandparent Colon cancer Hypertension Acute myocardial infarction Social History Social History Smoking status: Former smoker Alcohol intake: former Substance use: never Substance use type: does not use Do You Feel Safe in your Home?: Yes Lack of Transportation: No Lack of Food: Never True Current Housing: I Have Housing Concerned About Future Housing: No Difficulty Paying Gas/Electric Bills: No Difficulty Paying for Meds: No Currently Unemployed: No Education: Trade/Vocational Certificate Difficulty w/ Childcare or Family Care: No Spiritual care concerns: No Meds Home Medications and Allergies Home Medications Medication Instructions Recorded Confirmed Type No Home Medications 09/19/23 09/19/23 History Allergies Allergy/AdvReac Type Severity Reaction Status Date / Time shellfish derived Allergy Anaphylaxis Verified 09/18/23 22:58 Vital Signs Vital Signs - 24 hr 09/20/23 14:00 09/20/23 16:00 09/20/23 19:38 Temperature 36.6 C Pulse Rate 106 H 106 H Respiratory Rate 16 Blood Pressure 117/77 Pulse Oximetry 95 Oxygen Delivery Room Air 09/20/23 20:09 09/20/23 20:11 09/20/23
[2023-09-21] MEDS: METOPROLOL SUCCINATE EXT REL 25 MG TABCR PO (14:25)
[2023-09-21] MEDS: SACUBITRIL/VALSARTAN 24-26 MG TABLET 1 TAB PO (22:13)
[2023-09-21] MEDS: MELATONIN 5 MG TABLET PO (22:13)
[2023-09-22] VITALS (7 sets, daily range): BP systolic 132; BP diastolic 90–91; PULSE 96–107; RESP 18–20; TEMP 36.1–36.8; O2SAT 94–99
[2023-09-22] MEDS: AZITHROMYCIN 500 MG/NS 250 ML 500 MG/250 ML BAG 250 MG IVPB (05:03)
[2023-09-22 05:47] LABS: Basophils Absolute Auto 0.1 K/mm3 (0.0-0.1); Basophils Percent Auto 0.4 % (0.2-1.2); Eosinophils Absolute Auto 0.1 K/mm3 (0-0.3); Eosinophils Percent Auto 0.7 % (0-4.4); Hematocrit 42.9 % (42.0-52.0); Hemoglobin 13.8 g/dL (14.0-18.0); Immature Granulocyte Absolute 0.09 K/mm3 (0.00-0.031); Immature Granulocyte Percent A 0.7 % (0-0.5); Lymphocytes Percent Auto 21.4 % (18.3-44.2); Mean Corpuscular HGB Conc 32.2 g/dl (32-36); Mean Corpuscular Hemoglobin 27.8 pg (26-34); Mean Corpuscular Volume 86.5 fl (80-100); Mean Platelet Volume 11.7 fl (7.4-10.4); Monocytes Absolute Auto 1.5 K/mm3 (0.1-0.6); Monocytes Percent Auto 11.2 % (2.6-8.5); Neutrophils Absolute Auto 8.9 K/mm3 (1.3-6.7); Neutrophils Percent Auto 65.6 % (45.5-73.1); Platelet Count Result 313 k/mm3 (150-375); Red Blood Count 4.96 M/mm3 (4.6-6.20); Red Cell Distribution Width 12.7 % (11.5-14.5); White Blood Count 13.6 K/mm3 (4.5-10.0)
[2023-09-22 06:01] LABS: Alanine Aminotransferase 21 U/L (6-50); Albumin Level 3.6 g/dL (3.5-5.1); Alkaline Phosphatase 93 U/L (38-126); Anion Gap 9 mmol/L (8-16); Aspartate Amino Transferase 23 U/L (17-59); Bilirubin,Total 1.2 mg/dL (0.2-1.3); Blood Urea Nitrogen 9 mg/dL (9-20); Calcium 8.7 mg/dL (8.4-10.2); Carbon Dioxide 23 mmol/L (22-30); Chloride 100 mmol/L (98-107); Estimated CRCL calculation 191 ml/min; Estimated Glomerular Filt Rate > 60; Glucose 352 mg/dL (65-110); Potassium 4.2 mmol/L (3.4-5.0); Sodium 132 mmol/L (137-145)
[2023-09-22] MEDS: BENZONATATE 100 MG CAPSULE PO ×2 (10:12→13:33)
[2023-09-22] MEDS: SPIRONOLACTONE 25 MG TABLET PO (10:12)
[2023-09-22] MEDS: METOPROLOL SUCCINATE EXT REL 25 MG TABCR PO (10:12)
[2023-09-22] MEDS: SACUBITRIL/VALSARTAN 24-26 MG TABLET 1 TAB PO (10:12)
[2023-09-22] MEDS: ENOXAPARIN 40 MG/0.4 ML SYRINGE SUB-Q (10:13)
[2023-09-22] MEDS: FUROSEMIDE INJ 40 MG/4 ML VIAL IV PUSH (10:25)
--- NOTE | 2023-09-22 12:26 | PM.PNCARD ---
Progress Note: A&P Assessment and Plan (1) Acute heart failure with reduced ejection fraction and diastolic dysfunction: Code(s): I50.41 - Acute combined systolic (congestive) and diastolic (congestive) heart failure Status: Acute Assessment and Plan: This is a new diagnosis of heart failure for the patient. Discussed echocardiogram results with the patient and diagnosis of heart failure. Unclear etiology of heart failure -- could possibly be familial/genetic (father was diagnosed with HFrEF in his 40s), viral cardiomyopathy given his recent viral symptoms and pneumonia, ischemic, idiopathic, etc. No evidence of acute coronary syndrome and given his young age, suspect it is most likely non-ischemic etiology. Echocardiogram does not appear to be consistent with HCM (father has HCM); however cannot rule out; patient was supposed to get tested for HCM in the past but has not done so yet. Can transition IV Lasix to PO Lasix 40mg once daily. He is tolerating Entresto, Toprol, and Spironolactone. Continue with current doses. Will need to start SGLT-2 inhibitor, which can be done as outpatient. Further optimization of GDMT as an outpatient. Recommend outpatient ischemic evaluation. Needs outpatient sleep study as well. Discussed Life Vest for the patient -- he is not sure about doing Life Vest at this time. Telemetry without any significant arrhythmias. Will need close outpatient follow up. Patient's father sees Dr. Juarez at [facility] and patient would also like to establish with him as well. They will call Dr. Juarez's office /2 and make the appointment. Okay to discharge home. Recommendations/Plan discussed with Dr. Leiva. (2) Community acquired pneumonia: Code(s): J18.9 - Pneumonia, unspecified organism Status: Acute Assessment and Plan: Management as per primary team. Subjective Date/time seen: 09/22/23 12:26 Interval history: Reason for visit: Acute heart failure with reduced ejection fraction HPI: We are consulted for heart failure with reduced ejection fraction. This is a 38 year old male with obesity who presented on 09/19 for orthopnea, dyspnea on exertion, productive cough since Thanksgiving, pleuritic chest pain. He is currently being treated for community acquired pneumonia. Given his symptoms of orthopnea, shortness of breath, along with elevated BNP of 774, an echocardiogram was obtained, which shows mildly enlarged LV, LVEF of 20-25%, grade 1 diastolic dysfunction, mild-moderate mitral regurgitation. Patient denies any prior cardiac history. Reports his father has hypertrophic cardiomyopathy. He has not been tested for that yet. No tobacco use or vaping. No illicit drug use. Date of service 09/22: He is feeling much better this morning. He is now off of oxygen. Review of Systems Review of Systems: All systems reviewed & are unremarkable except as noted in HPI and below (HPI) Exam Const: General: comfortable and no acute distress HENMT: Mouth: Yes moist mucous membranes Eyes: General: appearance normal, both eyes and all related structures Sclera: sclerae normal Neck: Neck: supple Resp: Effort & Inspection: normal respiratory effort Auscultation: clear to auscultation bilaterally Cardio: Rate: regular rate Rhythm: regular rhythm Heart sounds: no murmurs Skin: General skin exam: normal color Neuro: Speech: normal speech Psych: Mental Status: mental status grossly normal Affect: normal affect Objective Data Vital Signs Vital Signs: Vital Signs - 24 hr 09/21/23 14:25 09/21/23 14:00 09/21/23 16:00 Temperature 36.5 C Pulse Rate 109 H 110 H 108 H Respiratory Rate 18 Blood Pressure 137/87 Pulse Oximetry 100 Oxygen Delivery 09/21/23 22:00 09/21/23 20:00 09/21/23 20:00 Temperature 36.4 C L Pulse Rate 109 H 110 H Respiratory Rate 20 Blood Pressure 152/69 H Pulse Oximetry 99 Oxygen Delivery Room Air 09/22/23 00:00 09/22/23 04:0
--- NOTE | 2023-09-22 12:41 | PM.DS ---
DS: Admitting Diagnosis Discharge Date 09/22/23 Admitting Diagnosis sob DS: Discharge Diagnosis Discharge Diagnosis (1) Community acquired pneumonia: Code(s): J18.9 - Pneumonia, unspecified organism Status: Acute Assessment and Plan: Initiated on Rocephin and azithromycin 09/19 Sputum culture pending Recheck chest x-ray 09/20 essentially unchanged Patient will need liquid antibiotics at discharge due to inability to swallow pills (2) Shortness of breath: Code(s): R06.02 - Shortness of breath Status: Acute Assessment and Plan: CTA chest official read pending, prelim read w/o acute PE. it also demonstrates hazy infiltrates b/l and some pulm edema. although his orthopnea and HERNANDEZ are most likely related to CAP, his father had HCM, his BNP elevated to 774. trop normal and EKG w/o acute ischemic change, TTE pending. He appears euvolemic and was given lasix 20mg x1 in the ED. will hold further dosing for now echo showed severe HF, cardio consult pending (3) Systolic heart failure: Code(s): I50.20 - Unspecified systolic (congestive) heart failure Status: Acute Assessment and Plan: severe new onset heart failure with EF 20-25% lasix 40 mg IV daily started cardio consult pending Plan GI prophylaxis: not indicated DVT prophylaxis: lovenox Code Status: Full Code Dispo: stable. DS: Summary Hospital Course Hospital Course: 38M w/ obesity who presents with orthopnea, dyspnea on exertion, cough productive of yellow green and brown sputum since .? Patient initially started on antibiotics for community-acquired pneumonia with Rocephin azithromycin 09/19. Echo was ordered and showed severe systolic heart failure. Cardiology was consulted and patient was started on goal-directed medical therapy for heart failure. Tolerated these medications well but will need continued follow-up outpatient to complete his GDMT and titrate to goal. Please see above, med rec, cardiac consult for details. All symptoms significantly improved and patient was discharged in stable condition with close outpatient follow-up. Time Spent with Patient Time attestation: Total time spent providing and/or coordinating discharge services: Exam Narrative: General: No acute distress, alert and oriented per baseline HEENT: Atraumatic, normocephalic, mucous membranes moist CV: Regular rate and rhythm, S1, S2 Lungs: Improved air entry from yesterday, coarse BS throughout, no wheeze Abdomen: Soft, nontender, nondistended Extremities: Normal to inspection Skin: No rashes noted, no lesions or wounds seen Psych: Euthymic, normal affect DS: Data Data Completed and Pending Labs on day of discharge: Labs from last 24 hours 09/22/23 05:23 WBC 13.6 H RBC 4.96 Hgb 13.8 L Hct 42.9 MCV 86.5 MCH 27.8 MCHC 32.2 RDW 12.7 Plt Count 313 MPV 11.7 H Immature Gran % (Auto) 0.7 H Neut % (Auto) 65.6 Lymph % (Auto) 21.4 [place] % (Auto) 11.2 H Eos % (Auto) 0.7 Baso % (Auto) 0.4 Lymph # (Auto) 2.90 [place] # (Auto) 1.5 H Eos # (Auto) 0.1 Baso # (Auto) 0.1 Abs Immat Gran (auto) 0.09 H Absolute Neuts (auto) 8.9 H Absolute Nucleated RBC 0.0 Nucleated RBC % 0.0 Sodium 132 L Potassium 4.2 Chloride 100 Carbon Dioxide 23 Anion Gap 9 BUN 9 Creatinine 0.60 L Estim Creat Clear Calc 191 Estimated GFR > 60 Glucose 352 H Calcium 8.7 Total Bilirubin 1.2 AST 23 ALT 21 Alkaline Phosphatase 93 Total Protein 7.0 Albumin 3.6 Discharge Plan Discharge Attending physician on discharge: Jenny Leiva Consulting providers: You Davey Discharging Clinician: Jenny Leiva Patient Disposition: Home, Self-Care Activity: as tolerated Diet: as tolerated and heart healthy Patient Instructions: Antibiotic Form, Metoprolol (By mouth), Spironolactone (By mouth), Sacubitril/Valsartan (By mouth) Stand Alone Forms: Ge
== END 2023-09-22 17:15 | disposition home or self-care (01) | DRG 193 ==
LOC: ANHED 09-19 05:02 → ANH3MED 09-19 07:11
PROVIDERS: Admitting Provider General Practice; Emergency Provider Emergency Medicine; PCP Family Medicine; Visit Provider Student in an Organized Health Care Education/Training Program
DX: J18.9 Pneumonia, unspecified organism (principal); I50.41 Acute combined systolic (congestive) and diastolic (congestive) heart failure; E66.9 Obesity, unspecified; Z68.37 Body mass index [BMI] 37.0-37.9, adult; Z87.891 Personal history of nicotine dependence; Z20.822 Contact with and (suspected) exposure to COVID-19; Z82.49 Family history of ischemic heart disease and other diseases of the circulatory system
CPT/HCPCS: 36415; 71045; 71275; 80053; 81003; 83605; 83735; 83880; 84145; 84484; 85025; 85380; 85610; 85730; 87070; 87205; 87637; 93005; 94640; 96365; 96366; 96367; 96372; 96375; 96376; 99285; A9270; C8929; G0378; J0456; J0696; J1650; J1885; J1940; Q9957; Q9967